=== PATIENT | male | born 1930 | race Caucasian/White ===

== ENCOUNTER → 2017-01-16 | Outpatient (CLI) | payer MEDICARE, OTHER ==
[~2017-01-16] MED LIST: FERR47.57 PO; METO25TA9 PO; PRAV20TA2 PO
--- NOTE | 2017-01-16 13:32 | RAD ---
Indication follow-up lung nodule. Axial images of the chest were obtained. No IV contrast was administered. Comparison is made to a study 09/17/2016. Imaging through the upper abdomen shows no acute or definite significant finding. There is no significant hilar or mediastinal adenopathy. Coronary artery calcification is noted. Pleural-parenchymal scarring at the right lung apex appears similar. Minimal scarring at the left lung apex is also similar. A spiculated nodule is seen in the right upper lobe, image 73 series 3, which appears unchanged. An acute finding in the chest is not seen. No new finding is apparent. Known underlying emphysematous changes are reproduced. IMPRESSION: No acute finding. No significant change. Underlying emphysematous changes. Pleural parenchymal scarring and area of spiculation in the right upper lobe are noted appearing similar. PQRS Compliance Statement: One or more of the following individualized dose reduction techniques were utilized for this examination: 1. Automated exposure control 2. Adjustment of the mA and/or kV according to patient size 3. Use of iterative reconstruction technique
== END | disposition home or self-care (01) ==
LOC: CT 12:47
PROVIDERS: ATTEND Internal Medicine Hematology & Oncology
DX: C18.0 Malignant neoplasm of cecum (principal); J43.9 Emphysema, unspecified; J98.4 Other disorders of lung; R91.1 Solitary pulmonary nodule; I25.10 Atherosclerotic heart disease of native coronary artery without angina pectoris
CPT/HCPCS: 71250

== ENCOUNTER → 2017-08-12 | Outpatient (CLI) | payer MEDICARE, OTHER ==
[~2017-08-12] MED LIST changes: +METO-239 PO; -METO25TA9 PO
--- NOTE | 2017-08-12 15:55 | RAD ---
CT of the chest without contrast, 08/12/2017: History: Cecal cancer, lung nodules Noncontrast scans were obtained as requested and compared to a study from 01/16/2017. There are severe emphysematous changes in the lungs. There are scattered pleural-parenchymal scars. In the apical regions bilaterally these presumed scars are partially calcified. There are calcified granulomata in the right chest. There is a small, spiculated, noncalcified parenchymal nodule in the right upper lobe as best seen on image 88 of series #3. It is V shaped in configuration on the axial images. On the coronal images it measures 8-9 mm in craniocaudad extent and show no definite change since 06/26/2016. No new pulmonary nodularity or infiltrate is seen. There is no evidence of pleural fluid. There is moderate calcific plaquing of the thoracic aorta. The ascending aorta is at the upper limits of normal in width measuring approximately 4.1 cm. There are moderate scattered coronary calcifications. No mediastinal adenopathy is seen. IMPRESSION: 1. Emphysema with pleural-parenchymal scarring. 2. Aortic atherosclerosis with borderline dilatation of the ascending aorta. 3. Coronary artery disease. 4. Unchanged small right upper lobe pulmonary nodule. Further CT surveillance is suggested to exclude a slowly growing neoplasm. PQRS Compliance Statement: One or more of the following individualized dose reduction techniques were utilized for this examination: 1. Automated exposure control 2. Adjustment of the mA and/or kV according to patient size 3. Use of iterative reconstruction technique
== END | disposition home or self-care (01) ==
LOC: CT 08:45
PROVIDERS: ATTEND Internal Medicine Hematology & Oncology
DX: I70.0 Atherosclerosis of aorta (principal); J43.9 Emphysema, unspecified; I25.10 Atherosclerotic heart disease of native coronary artery without angina pectoris; C18.0 Malignant neoplasm of cecum
CPT/HCPCS: 71250

== ENCOUNTER → 2018-02-04 | Outpatient (CLI) | payer MEDICARE, OTHER | END | disposition home or self-care (01) | LOC: CT 10:25 | DX: J40 Bronchitis, not specified as acute or chronic (principal); J43.9 Emphysema, unspecified; R91.1 Solitary pulmonary nodule | CPT/HCPCS: 71250 ==

== ENCOUNTER → 2018-04-25 | Outpatient (CLI) | payer MEDICARE, OTHER ==
[2018-04-25] MEDS: IOHEXOL 240 MG/ML 50ML VIAL. PO (08:15)
[2018-04-25] MEDS: IOHEXOL 300 MG/ML 100ML VIAL. IV (09:23)
== END | disposition home or self-care (01) ==
LOC: CT 08:11
DX: K57.30 Diverticulosis of large intestine without perforation or abscess without bleeding (principal); Z85.038 Personal history of other malignant neoplasm of large intestine
CPT/HCPCS: 74177; Q9966; Q9967

== ENCOUNTER → 2018-07-29 | Outpatient (CLI) | payer MEDICARE, OTHER ==
[~2018-07-29] MED LIST changes: +IOHEXOL 240 MG/ML 50ML VIAL. PO ONE
--- NOTE | 2018-07-29 13:54 | RAD ---
PQRS Compliance statement: One or more of the following individualized dose reduction techniques were utilized for this examination: 1. Automated exposure control. 2. Adjustment of the mA and/or kV according to patient size. 3. Use of iterative reconstruction technique. Indication:RECTAL CA. Surveillance scan. TECHNIQUE: CT chest, abdomen and pelviswithout IV contrast with multiplanar reformats. COMPARISON: CT chest from 02/04/[address] abdomen pelvis from 04/25/2018. FINDINGS:Limited evaluation of solid abdominal and pelvic organs due to lack of IV contrast. CT CHEST: Heart is normal in size. Coronary artery calcifications. No pericardial or pleural effusion. Moderate diffuse atherosclerotic ossification seen of the thoracic aorta. Clear neck base. No enlarged axillary or mediastinal adenopathy. Evaluation of hilar lymphadenopathy is limited due to lack of IV contrast. Mild to moderate diffuse emphysema. Stable spiculated opacity is seen in the right upper lobe measuring 8 mm dating back to August 2016. Surrounding scarring or suture material seen. Otherwise, lungs are clear. No suspicious bony lesion. Advanced left glenohumeral joint osteoarthritis. CT abdomen pelvis: Scattered hepatic and splenic calcified granulomas. Noncontrast appearance of the liver, spleen, adrenals within normal limits. Status post cholecystectomy. No nephrolithiasis or hydronephrosis. Moderate diffuse atherosclerotic disease seen of the abdominal aorta and bilateral iliac arteries. 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 No enlarged retroperitoneal or pelvic adenopathy. No free pelvic fluid or ascites. Sigmoid diverticulosis. No bowel obstruction. Ileocolonic anastomotic sutures are seen in the right upper quadrant. No abnormal thickening of the anastomosis. No suspicious bony lesion. Urinary bladder demonstrates no radiopaque stones. Prostate is mildly enlarged measuring 5.4 x 4.1 cm. IMPRESSION: Limited evaluation of solid abdominal and pelvic organs due to lack of IV contrast. 1. Stable spiculated nodular opacity in the right upper lobe stable for at least 2 years and most likely benign given interval stability. Marked moderate diffuse emphysema. 2. Sigmoid diverticulosis. Electronically signed by: Dylon Orta DO (07/29/2018 1:51 PM) [facility]
== END | disposition home or self-care (01) ==
LOC: CT 11:00
PROVIDERS: ATTEND Internal Medicine Hematology & Oncology
DX: K57.30 Diverticulosis of large intestine without perforation or abscess without bleeding (principal); N40.0 Benign prostatic hyperplasia without lower urinary tract symptoms; I72.2 Aneurysm of renal artery; J43.9 Emphysema, unspecified; I70.0 Atherosclerosis of aorta; M19.012 Primary osteoarthritis, left shoulder; I25.10 Atherosclerotic heart disease of native coronary artery without angina pectoris; R91.8 Other nonspecific abnormal finding of lung field; Z90.49 Acquired absence of other specified parts of digestive tract; Z85.038 Personal history of other malignant neoplasm of large intestine
CPT/HCPCS: 71250; 74176